=== PATIENT | male | born 1970 | race Caucasian/White ===

== ENCOUNTER 2018-07-01 10:41 | Emergency (ER) | payer MEDICAID ==
[~2018-07-01] VITALS: Ht 180.3 cm; Wt 155.0 kg
[2018-07-01] MEDS ORDERED: IBUPROFEN 400 MG TABLET PO ONE (11:45)
[2018-07-01 12:15] VITALS: BP 123/89
== END 2018-07-01 12:26 | disposition home or self-care (01) ==
LOC: EMS 10:41
DX: M79.602 Pain in left arm (principal)

== ENCOUNTER 2018-11-11 07:26 | Emergency (ER) | payer MEDICAID ==
[~2018-11-11] VITALS: Ht 180.3 cm; Wt 150.0 kg
[2018-11-11] MEDS ORDERED: LIDOCAINE 5% TRANSDERMAL PATCH TD ONE (08:00)
[2018-11-11] MEDS ORDERED: ACETAMINOPHEN 500 MG TABLET PO ONE (08:00)
[2018-11-11 10:15] VITALS: BP 136/70
== END 2018-11-11 10:19 | disposition home or self-care (01) ==
LOC: EMS 07:28
DX: M19.012 Primary osteoarthritis, left shoulder (principal)

== ENCOUNTER 2019-01-13 19:19 | Emergency (ER) | payer MEDICAID ==
[~2019-01-13] VITALS: Ht 180.3 cm; Wt 152.3 kg
[2019-01-13 20:02] LABS: BASOPHILS % (AUTO) 0.8 % (0.0-2.0); EOSINOPHILS % (AUTO) 4.7 % (1.0-6.0); HEMATOCRIT 45.5 % (41-53); HEMOGLOBIN 14.9 g/dL (13.5-17.5); LYMPHOCYTES # (AUTO) 3.8 K/uL (1.0-4.8); LYMPHOCYTES % (AUTO) 31.3 % (22.0-44.0); MEAN CORPUSCULAR HEMOGLOBIN 28.8 pg (26.0-34.0); MEAN CORPUSCULAR HGB CONC 32.7 G/dL (31.0-37.0); MEAN CORPUSCULAR VOLUME 88 fL (80-100); MONOCYTES # (AUTO) 1.1 K/uL (0.1-1.0); MONOCYTES % (AUTO) 8.7 % (2.0-9.0); NEUTROPHILS # (AUTO) 6.6 K/uL (1.8-7.7); NEUTROPHILS % (AUTO) 54.5 % (40.0-70.0); PLATELET COUNT (AUTO) 339 K/uL (150-450); RED BLOOD CELL COUNT(AUTO) 5.17 MIL/uL (4.50-5.90); RED CELL DISTRIBUTION WIDTH 13.8 % (11.5-14.5)
[2019-01-13 20:19] LABS: ANION GAP 2 mmol/L (8-16); CALCIUM, TOTAL 8.9 mg/dL (8.8-10.5); CARBON DIOXIDE 34 mmol/L (22-29); CHLORIDE 105 mmol/L (98-107); CREATININE 0.86 mg/dL (0.60-1.30); GLOMERULAR FILTR. RATE CALC > 60 mL/min (>60); GLUCOSE,RANDOM 138 mg/dL (70-110); SODIUM SERUM 141 mmol/L (136-145); UREA NITROGEN, BLOOD 12 mg/dL (7-18)
[2019-01-13 20:26] LABS: ALANINE AMINOTRANSFERASE 30 U/L (12-78); ALBUMIN 3.5 g/dL (3.4-5.0); ALKALINE PHOSPHATASE 89 U/L (46-116); ASPARTATE AMINOTRANSFERASE 20 U/L (15-37); BILIRUBIN,TOTAL 0.3 mg/dL (0.1-1.0); TOTAL PROTEIN, SERUM 7.6 g/dL (6.4-8.2)
[2019-01-13] MEDS ORDERED: HYDROCODONE/ACETAMINOPHEN 5-325 MG TABLET PO ONE (21:00)
[2019-01-13 22:09] VITALS: BP 131/63
== END 2019-01-13 22:20 | disposition home or self-care (01) ==
LOC: EMS 19:19
DX: M25.512 Pain in left shoulder (principal); R07.89 Other chest pain
CPT/HCPCS: 93005

== ENCOUNTER 2019-01-19 20:32 | Emergency (ER) | payer MEDICAID ==
[~2019-01-19] VITALS: Ht 180.3 cm; Wt 150.0 kg
[2019-01-19 21:29] VITALS: BP 135/75
[2019-01-19] MEDS ORDERED: KETOROLAC TROMETHAMINE 30 MG/ML VIAL IM ONE (21:30)
== END 2019-01-19 22:05 | disposition home or self-care (01) ==
LOC: EMS 20:33
DX: M19.012 Primary osteoarthritis, left shoulder (principal); F12.90 Cannabis use, unspecified, uncomplicated
CPT/HCPCS: 96372; 99283; J1885

== ENCOUNTER 2022-04-04 11:47 | Emergency (ER) | payer MEDICAID ==
[~2022-04-04] VITALS: Ht 180.3 cm; Wt 145.4 kg
[2022-04-04] MEDS ORDERED: CLOT15CR29 TP (14:06)
[2022-04-04 14:20] VITALS: BP 125/84
== END 2022-04-04 14:41 | disposition home or self-care (01) ==
LOC: EMS 11:57
DX: N48.1 Balanitis (principal); F12.90 Cannabis use, unspecified, uncomplicated; D69.6 Thrombocytopenia, unspecified
CPT/HCPCS: 99282; Z7502

== ENCOUNTER 2024-01-05 11:09 | Emergency (ER) | payer OTHER ==
[~2024-01-05] VITALS: Ht 180.3 cm; Wt 131.8 kg
[~2024-01-05 11:09] MED LIST: CLOT15CR29 TP
[2024-01-05 11:19] VITALS: BP 103/73; PULSE 88; RESP 18; TEMP 98.6; O2SAT 95
[2024-01-05 11:46] LABS: BASOPHILS % (AUTO) 1.3 % (0.0-2.0); EOSINOPHILS % (AUTO) 3.9 % (1.0-6.0); HEMATOCRIT 47.8 % (41-53); HEMOGLOBIN 15.8 g/dL (13.5-17.5); LYMPHOCYTES # (AUTO) 3.1 K/uL (1.0-4.8); LYMPHOCYTES % (AUTO) 31.9 % (22.0-44.0); MEAN CORPUSCULAR HEMOGLOBIN 28.4 pg (26.0-34.0); MEAN CORPUSCULAR VOLUME 86 fL (80-100); MONOCYTES # (AUTO) 0.9 K/uL (0.1-1.0); NEUTROPHILS # (AUTO) 5.2 K/uL (1.8-7.7); NEUTROPHILS % (AUTO) 53.9 % (40.0-70.0); PLATELET COUNT (AUTO) 278 K/uL (150-450); RED BLOOD CELL COUNT(AUTO) 5.54 MIL/uL (4.50-5.90); RED CELL DISTRIBUTION WIDTH 13.3 % (11.5-14.5); WHITE BLOOD COUNT (AUTO) 9.6 K/uL (4.5-11.0)
[2024-01-05 11:57] LABS: ANION GAP 7 mmol/L (8-16); CALCIUM, TOTAL 8.8 mg/dL (8.8-10.5); CARBON DIOXIDE 29 mmol/L (22-29); CHLORIDE 98 mmol/L (98-107); GLOMERULAR FILTR. RATE CALC > 60 mL/min (>60); GLUCOSE,RANDOM 271 mg/dL (70-110); SODIUM SERUM 134 mmol/L (136-145); UREA NITROGEN, BLOOD 13 mg/dL (7-18)
[2024-01-05 12:03] LABS: B-TYPE NATRIURETIC PEPTIDE 9 pg/mL (0-100)
[2024-01-05 12:07] LABS: TROPONIN I-HIGH SENSITIVITY 8 ng/L (<76)
[2024-01-05 13:55] LABS: TROPONIN I-HIGH SENSITIVITY 7 ng/L (<76)
== END 2024-01-05 14:09 | disposition home or self-care (01) ==
LOC: EMS 11:11
DX: R07.89 Other chest pain (principal); Z98.890 Other specified postprocedural states
CPT/HCPCS: 71045; 80048; 83880; 84484; 85025; 93005; 99285; 36415-L1; 36415-TC

== ENCOUNTER 2024-07-08 20:54 | Emergency (ER) | payer OTHER | END 2024-07-08 21:30 | disposition left against medical advice (07) | LOC: EMS 20:54 | DX: Z53.21 Procedure and treatment not carried out due to patient leaving prior to being seen by health care provider (principal) ==